=== PATIENT | female | born 1975 | race Caucasian/White ===

== ENCOUNTER 2017-05-28 13:21 | Emergency (ER) | payer OTHER ==
[~2017-05-28] VITALS: Ht 165.1 cm; Wt 91.6 kg
[~2017-05-28 13:21] MED LIST: ADULT LOW DOSE81 M1 PO; FIORICET 50-301 EACH PO; NO HOME MEDS; PROMETHAZINE HC25 M1 PO
[2017-05-28 15:18] LABS: BASOPHIL COUNT 0.1 K/uL (0-0.1); EOSINOPHIL (%) 0.5 % (0-5); EOSINOPHIL COUNT 0.1 K/uL (0-0.3); HEMATOCRIT 38.2 % (36.0-46.0); IMMATURE GRANULOCYTE (%) 0.4 % (0.0-0.7); IMMATURE GRANULOCYTE COUNT 0.1 K/uL; INSTRUMENT ABS NEUTROPHIL CT 8.3 K/uL; LYMPHOCYTE COUNT 2.8 K/uL (1.0-2.8); MCH 31.8 PG (29.0-34.0); MCHC 34.3 G/DL (30.0-36.0); MCV 92.7 FL (83-99); MEAN PLAT.VOLUME 8.7 uM^3 (9.5-12.4); MONOCYTE COUNT 0.7 K/uL (0-0.8); NEUTROPHIL (%) 69.6 % (45-76); NEUTROPHIL COUNT 8.3 K/uL (1.8-6.4); PLATELET COUNT 325 K/uL (156-360); RBC DIS.WIDTH-CV 12.1 % (11.8-14.6); RBC DIS.WIDTH-SD 41.5 % (39-53); RED BLOOD COUNT 4.12 M/uL (3.80-5.20); WHITE BLOOD COUNT 11.9 K/uL (4.1-10.2)
[2017-05-28 15:27] LABS: CHLORIDE 107 mEq/L (99-109); SODIUM 141 mEq/L (136-147)
[2017-05-28 15:29] LABS: GLUCOSE 90 mg/dL (70-99)
[2017-05-28 15:30] LABS: ANION GAP 11 MEQ/L (2-14)
[2017-05-28 15:31] LABS: TOTAL BILIRUBIN 0.2 mg/dL (0.0-1.0)
[2017-05-28 15:32] LABS: ALKALINE PHOSPHATASE 70 IU/L (3-129)
[2017-05-28 15:33] LABS: GFR ESTIMATE (CALCULATED) > 59 mL/min/
[2017-05-28 15:34] LABS: UREA NITROGEN (BUN) 11 mg/dL (9-23)
[2017-05-28] MEDS ORDERED: NORCO 5/3251 TABLET PO (15:44)
[2017-05-28 16:13] LABS: PROTHROMBIN TIME 10.7 SEC (10.2-12.9)
[2017-05-28 18:53] VITALS: BP 137/77
[2017-05-29] MEDS ORDERED: ADVIL200 MG PO (08:17)
== END 2017-05-28 18:56 | disposition home or self-care (01) ==
LOC: EME 13:21
PROVIDERS: Physician Assistant
DX: L03.115 Cellulitis of right lower limb (principal); D72.829 Elevated white blood cell count, unspecified; Z23 Encounter for immunization; Z87.891 Personal history of nicotine dependence; Z90.710 Acquired absence of both cervix and uterus
CPT/HCPCS: 80053; 83605; 85025; 85610; 87040; 87070; 87075; 87205; 99281; 99285; J1200; J3370; S0028

== ENCOUNTER 2017-06-03 05:20 | Emergency (ER) | payer OTHER ==
[~2017-06-03] VITALS: Ht 165.1 cm; Wt 89.8 kg
[~2017-06-03 05:20] MED LIST changes: +ADVIL200 MG PO; +NORCO 5/3251 TABLET PO
[2017-06-03] MEDS ORDERED: PEPCID20 MG PO (07:22)
[2017-06-03] MEDS ORDERED: MEDROL DOSEPAK4 MG PO (07:22)
[2017-06-03] MEDS ORDERED: BENADRYL25 MG PO (07:22)
[2017-06-03 08:02] VITALS: BP 140/99
== END 2017-06-03 08:04 | disposition home or self-care (01) ==
LOC: EME 05:20
DX: L50.0 Allergic urticaria (principal); T37.0X5A Adverse effect of sulfonamides, initial encounter; Z87.891 Personal history of nicotine dependence
CPT/HCPCS: 99281; 99284; J7512